=== PATIENT | female | born 1955 | race Caucasian/White ===

== ENCOUNTER 2018-07-27 23:25 | Observation (INO) ==
--- NOTE | 2018-07-27 23:48 | Emergency Department Note ---
Disposition Clinical Impression: Anemia Qualifiers: Anemia type: unspecified type Qualified Code(s): D64.9 - Anemia, unspecified Disposition: Admitted As Inpatient Condition: Good Referrals: Amy Muniz MD [Primary Care Provider] - General Adult HPI - General Stated complaint: Abnormal Labs Time Seen by Provider: 07/27/18 23:34 Source: patient, other (NH file, [place] MD report) Mode of arrival: wheelchair Limitations: other (MRDD) Nursing Notes Reviewed: Yes Vital Signs Reviewed: Yes - History of Present Illness HPI Narrative: Patient presents to the ED from a local nursing facility with request for blood transfusion and continued management of hyponatremia. Per Dr. Muniz, patient's physician at [facility], patient is requiring a blood transfusion due to a hemoglobin of 6.9 that was drawn on the morning of 07/27. Patient has also been receiving sodium chloride tablets and a normal saline infusion to treat hyponatremia with sodiums in the 120s over the past several days. Per Dr. 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 She was originally seen in this ED on 06/25, transferred to [facility] and then sent on to [facility] due to her multiple complicated issues. She apparently had a bone marrow biopsy while at [facility] and was initiated on oral chemotherapy for her CML after receiving acute treatment for her blast crisis. She was also transfused 3 units of blood during her admission and had several surgeries for incision and drainage, debridements and wound vacs for her left lower extremity infected hematoma. She is now being followed by Dr. Chaparro in oncology at [facility] and has a standing order for blood transfusions of leuko-reduced irradiated PRBCs as needed to maintain a hemoglobin of greater than 8. Per Dr. Muniz they have been monitoring her H&H on an outpatient basis and it dropped to 6.9 this morn ing after being 7.8 on the an 8.5 on the . No hemoglobin was checked on the . She has also had a low sodium for the past several days and has been treated with sodium chloride tablets as well as a normal saline infusion. Review of records shows her sodium was 124 on the followed by 123 on the and 122 on the . A normal saline infusion was initiated around 5 PM on the and her sodium had improved to 126 on this morning's labs. According to nursing report just prior to transfer to the ED patient has had a total of 2.25 L of normal saline that has been running at 75 mL an hour since approximately [address] Muniz decided to send her to the ED this evening for transfusion, continuation of normal saline infusions and monitoring of her hyponatremia. Patient received one of her when necessary 5 mg oxycodone to 11 PM and her normal saline infusion was stopped at that time just prior to transport to the ED. On arrival to the ED patient is complaining only of chronic pain in her left leg. She denies any chest pain or shortness of breath. No abdominal pain, nausea or vomiting. No fever or chills. She is sitting comfortably in a wheelchair and is awake and alert. - Related Data Home Medications Medication Instructions Recorded Confirmed Lisinopril [Zestril] 20 mg PO DAILY 06/24/18 07/28/18 Omeprazole [PriLOSEC] 20 mg PO BID 06/24/18 07/28/18 Perphenazine 4 mg PO DAILY 06/24/18 07/28/18 Simvastatin [Zocor] 40 mg PO HS 06/24/18 07/28/18 Docusate [Colace] 100 mg PO PRN PRN 06/25/18 07/28/18 Imatinib Mesylate [Gleevec] 400 mg PO DAILY 07/28/18 07/28/18 Oxycodone HCl [Roxybond] 5 mg PO Q8H PRN 07/28/18 07/28/18 Allergies Allergy/AdvReac Type Severity Reaction Status Date / Time allopurinol Allergy Rash Verified 07/28/18 00:21 sulfamethoxazole AdvReac See Verified 07/28/18 00:21 [From Bactrim] Comments trimethoprim [From Bactrim] AdvReac See Verified 07/28/18 00:21 Comments Constitutional: Denies: fever, chills, weakness, weight change Eyes: Denies: eye pain, eye discharge, vision change ENT ED: Denies: ear pain, throat pain, dental pain, hearing loss, epistaxis, congestion, dysphagia Cardiovascular: Denies: chest pain, palpitations, dyspnea on exertion, edema, syncope Respiratory: Denies: cough, dyspnea, wheezes, hemoptysis, stridor Gastrointestinal: Denies: abdominal pain, nausea, vomiting, diarrhea, constipation, hematemesis, melena, hematochezia Genitourinary: Denies: dysuria, frequency, hematuria, discharge Musculoskeletal: Reports: as per HPI, myalgia (left leg). Denies: back pain, neck pain, arthralgia Integumentary: Denies: rash, abrasion, lesions Neurological: Denies: headache, weakness, numbness, paresthesias, confusion, abnormal gait, vertigo Psychiatric: Denies: anxiety, depression, suicidal thoughts, homicidal thoughts, auditory hallucinations, visual hallucinations Endocrine: Denies: fatigue Hematological/Lymphatic: Denies: easy bleeding, easy bruising Allergic/Immunologic: Denies: facial swelling, urticaria Past Medical History - Past Medical History Medical history: Reports: GERD, hyperlipidemia, hypertension, other Psychiatric history: Reports: anxiety HYDROELECTRIC MECHANIC history: Reports: no HYDROELECTRIC MECHANIC history - Social History Smoking Status: Never smoker Smokeless Tobacco Status: No Alcohol use: Reports: none Drug use: Reports: none Physical Exam - General Limitations: physical limitation General appearance: alert, in no apparent distress - Head Head exam: atraumatic, normocephalic, normal inspection - Eye Eye exam: Present: normal appearance, PERRL, EOMI - ENT ENT exam: normal exam, normal oropharynx, mucous membranes moist - Neck Neck exam: Present: normal inspection, full ROM, trachea midline - Chest Chest inspection: Present: normal inspection, symmetric chest wall rise - Respiratory Respiratory exam: Present: normal lung sounds bilaterally - Cardiovascular Cardiovascular exam: Present: regular rate, normal rhythm, normal heart sounds - Abdominal Exam Abdominal exam: Present: soft, Non-Tender. Absent: tenderness, distention, guarding, rebound, rigidity - Extremities Exam Extremities exam: Present: normal inspection, normal capillary refill, other (CHINEDU wrap and knee immobilizer on LLE). Absent: tenderness, pedal edema - Back Exam Back exam: Present: normal inspection, full ROM. Absent: tenderness - Neurological Exam Neurological exam: Present: alert, oriented X3 - Psychiatric Psychiatric exam: Present: normal affect, normal mood - Skin Skin exam: Present: warm, dry, intact, pallor Course Course Narrative: Patient presents to the ED with request for blood transfusion and continued normal saline infusion for hyponatremia per her retirement physician. On arrival patient is afebrile, hemodynamically stable and nontoxic in appearance. She has no acute complaints or symptoms related to her current anemia. Will recheck CBC and BMP. Per lab patient had a type and cross and hold performed 2 days ago in anticipation of transfusion which can still be utilized for her transfusion today. Blood will be ordered from [facility]. Will contact the hospit alist and make arrangements for admission and monitoring of her transfusion upon completion of initial lab work. - Reevaluation(s) Reevaluation #1: I was just informed by nursing staff that the ID band associated with the patient's prior type and hold order for PRBCs from 2 days ago was disposed of by the retirement. For this reason she will now have to be typed and crossed all over again with a new blood order placed to [facility]. This will cause significant delay in initiation of her transfusion. Time: 00:09 Reevaluation #2: Patient's hemoglobin is 7.8 and hematocrit is 23.7. It remains unclear why there is such a discrepancy compared to her most recent labs given that she has been receiving IV fluids all day and would therefore be expected to be more dilutional but this is still below the threshold as desired by her oncologist and we will therefore go ahead and transfuse 1 unit. Will plan to have hemoglobin rechecked before continuing with a second unit as originally planned. Still awaiting BMP at this time due to QC tests being ran on lab equipment. Time: 01:41 Reevaluation #3: Seated verbal report from lab that patient's current sodium is 131 which is an improvement from 126 yesterday morning and potassium is 5.0 compared to 5.2 yesterday. Will contact the hospitalist on-call at this time to make arran gements for admission for monitoring of her transfusion and repeat lab work. Additional Reevaluation(s): 02:38 - spoke to the hospitalist on-call, Dr. Carrillo, who has accepted the patient. Transfusion has just been initiated. Will arrange for repeat labs be drawn at 8 AM. Vital Signs Temperature 98.8 F 07/27/18 23:35 Pulse Rate 97 07/27/18 23:35 Respiratory Rate 18 07/27/18 23:35 Blood Pressure 123/77 07/27/18 23:35 O2 Sat by Pulse Oximetry 100 07/27/18 23:35 Temperature 98.4 F 07/28/18 02:24 Pulse Rate 82 07/28/18 02:24 Respiratory Rate 18 07/28/18 02:24 Blood Pressure 115/68 07/28/18 02:24 O2 Sat by Pulse Oximetry 100 07/27/18 23:35 Oxygen Delivery Oxygen Delivery Room Air Medical Decision Making - Medical Records Medical records reviewed: Yes I reviewed the patient's medical records. - Lab Data Lab results reviewed: Yes I reviewed the patient's lab results. Result diagrams: 07/28/18 00:45 Lab Results 07/28/18 07/28/18 Range/Units 00:45 00:45 WBC 4.2 L (4.3-11.1) K/mcL RBC 2.74 L (3.82-4.97) M/mcL Hgb 7.8 L (11.5-15.4) g/dL Hct 23.7 L (35.3-44.9) % MCV 86.5 (83.0-100.0) fL MCH 28.5 (28.0-33.3) pg MCHC 32.9 (31.6-35.5) g/dL RDW 20.4 H (11.5-14.5) % Plt Count 104 L (140-400) K/mcL MPV 9.2 L (9.4-12.4) fL Immature Gran % 0.7 (0-4) % Seg Neutrophils % 31.9 % Lymphocytes % 56.0 % Monocytes % 6.9 % Eosinophils % 1.9 % Basophils % 2.6 % Neutrophils # 1.3 L (1.6-8.9) K/mcL Lymphocytes # 2.4 (0.6-4.6) K/mcL Monocytes # 0.3 (0.0-1.3) K/mcL Eosinophils # 0.1 (0.0-0.6) K/mcL Basophils # 0.1 (0.0-0.2) K/mcL Blood Type O POSITIVE Antibody Screen NEGATIVE Crossmatch See Detail
[2018-07-28 00:46] LABS: Basophils # 0.1 K/mcL (0.0-0.2); Basophils % 2.6 %; Eosinophils # 0.1 K/mcL (0.0-0.6); Eosinophils % 1.9 %; Hematocrit 23.7 % (35.3-44.9); Hemoglobin 7.8 g/dL (11.5-15.4); Immature Granulocytes % 0.7 % (0-4); Mean Corpuscular HGB Conc 32.9 g/dL (31.6-35.5); Mean Corpuscular Hemoglobin 28.5 pg (28.0-33.3); Mean Corpuscular Volume 86.5 fL (83.0-100.0); Mean Platelet Volume 9.2 fL (9.4-12.4); Monocytes # 0.3 K/mcL (0.0-1.3); Monocytes % 6.9 %; Neutrophils # 1.3 K/mcL (1.6-8.9); Platelet Count 104 K/mcL (140-400); Red Blood Count 2.74 M/mcL (3.82-4.97); Red Cell Distribution Width 20.4 % (11.5-14.5); Segmented Neutrophils % 31.9 %
[2018-07-28 00:52] LABS: Lymphocytes # 2.4 K/mcL (0.6-4.6)
[2018-07-28] MEDS ORDERED: 0.9 % Sodium Chloride 500 ML ONE ×2 (02:15→03:18)
[2018-07-28] MEDS ORDERED: Naloxone 0.4 MG/ML INJ IVP PRN ×2 (02:30→03:18)
[2018-07-28 03:29] LABS: Chloride 98 mEq/L (98-107); Sodium 131 mEq/L (136-145)
[2018-07-28 03:30] LABS: BUN/Creatinine Ratio 13 (6-26); Blood Urea Nitrogen 10 mg/dL (8-23); Calcium 8.6 mg/dL (8.6-10.3); Carbon Dioxide 24 mEq/L (23-29); Glucose 110 mg/dL (70-105); Osmolality,Calculated 272 (280-300); eGFR For Non-African Americans > 60 (> 60)
[2018-07-28 08:43] LABS: Basophils # 0.1 K/mcL (0.0-0.2); Eosinophils # 0.1 K/mcL (0.0-0.6); Eosinophils % 1.8 %; Hematocrit 26.4 % (35.3-44.9); Hemoglobin 8.8 g/dL (11.5-15.4); Immature Granulocytes % 0.7 % (0-4); Lymphocytes % 43.5 %; Mean Corpuscular HGB Conc 33.3 g/dL (31.6-35.5); Mean Corpuscular Hemoglobin 28.9 pg (28.0-33.3); Mean Corpuscular Volume 86.8 fL (83.0-100.0); Mean Platelet Volume 8.3 fL (9.4-12.4); Monocytes # 0.3 K/mcL (0.0-1.3); Monocytes % 6.6 %; Neutrophils # 2.1 K/mcL (1.6-8.9); Red Blood Count 3.04 M/mcL (3.82-4.97); Red Cell Distribution Width 19.2 % (11.5-14.5); Segmented Neutrophils % 45.4 %
[2018-07-28 08:48] LABS: Platelet Count 73 K/mcL (140-400)
[2018-07-28 09:03] LABS: BUN/Creatinine Ratio 12 (6-26); Blood Urea Nitrogen 9 mg/dL (8-23); Calcium 8.4 mg/dL (8.6-10.3); Carbon Dioxide 22 mEq/L (23-29); Chloride 101 mEq/L (98-107); Glucose 105 mg/dL (70-105); Osmolality,Calculated 267 (280-300); Potassium 4.9 mEq/L (3.5-5.1); Sodium 129 mEq/L (136-145); eGFR For Non-African Americans > 60 (> 60)
[2018-07-28] MEDS: Lisinopril 20 MG TABLET PO SCH (10:54)
[2018-07-28] MEDS: (Imatinib Mesylate [Gleevec] 400 MG) PO SCH ×2 (10:55→19:11)
[2018-07-28] MEDS: Perphenazine 2 MG TABLET PO SCH (10:55)
[2018-07-28] MEDS: *HR* OxyCODONE Immed Rel 5 MG TABLET PO PRN ×2 (11:01→23:53)
--- NOTE | 2018-07-28 11:48 | Internal Med History&Physical ---
Date of Encounter: 07/28/18 Time of Encounter: 11:20 Internal Medicine - H&P: HPI Chief complaint: symptomatic anemia Admitted From: Long-term Nursing Facility History of present illness: Ms. Mei is a 63 year old female who was sent from her nursing facility to ED for symptomatic anemia. Pt was weak and pale HB had been checked that day which was reported to be under 7. Pt did not have active bleeding, but had recent issues regarding her blood. She has also recurring symptomatic hyponatremia. She did have recent diagnosis of CML. She was treated at [facility] from 06/25 and then sent to [facility]. She apparently had a bone marrow biopsy while at [facility] and was initiated on oral chemotherapy for her CML after receiving acute treatment for her blast crisis. She was also transfused 3 units of blood during her admission and had several surgeries for incision and drainage, debridements and wound vacs for her left lower extremity infected hematoma. She is now being followed by Dr. Chaparro in oncology at [facility] and has a standing order for blood transfusions of leuko-reduced irradiated PRBCs as needed to maintain a hemoglobin of greater than 8. She takes salt tablets for chronic hyponatremia. She has chronic leg pain and reduced mobility and hx of falls. She had complication of previous fall with recent left LL incision and drainage, debridements and wound vacs for her left lower extremity infected hematoma. - Related Data Home Medications Medication Instructions Recorded Confirmed Lisinopril [Zestril] 20 mg PO DAILY 06/24/18 07/28/18 Omeprazole [PriLOSEC] 20 mg PO BID 06/24/18 07/28/18 Perphenazine 4 mg PO DAILY 06/24/18 07/28/18 Simvastatin [Zocor] 40 mg PO HS 06/24/18 07/28/18 Docusate [Colace] 100 mg PO PRN PRN 06/25/18 07/28/18 Imatinib Mesylate [Gleevec] 400 mg PO DAILY 07/28/18 07/28/18 Oxycodone HCl [Roxybond] 5 mg PO Q8H PRN 07/28/18 07/28/18 Allergies Allergy/AdvReac Type Severity Reaction Status Date / Time allopurinol Allergy Rash Verified 07/28/18 00:21 sulfamethoxazole AdvReac See Verified 07/28/18 00:21 [From Bactrim] Comments trimethoprim [From Bactrim] AdvReac See Verified 07/28/18 00:21 Comments Constitutional: Denies: fever, chills does complain of general weakness and anxiety Eyes: Denies: eye pain, eye discharge, vision change ENT ED: Denies: ear pain, throat pain, dental pain, hearing loss, epistaxis, congestion, dysphagia Cardiovascular: Denies: chest pain, palpitations, dyspnea on exertion, edema, syncope Respiratory: Denies: cough does feel sob with exertion Gastrointestinal: Denies: abdominal pain, nausea, vomiting Genitourinary: Denies: dysuria, hematuria, discharge Musculoskeletal: Reports: as per HPI, myalgia (left leg) Integumentary: Denies: rash did have hematoma after fall Neurological: Denies: headache, weakness, numbness, paresthesias, confusion, abnormal gait, vertigo Psychiatric: reports anxiety, worried about her cat Jens she says her sister is caring for the cat. denies suicidal thoughts Past Medical History - Past Medical History Medical history: Reports: GERD, hyperlipidemia, hypertension, other Psychiatric history: Reports: anxiety TRANSPORTATION MAINTENANCE SPECIALIST history: Reports: no TRANSPORTATION MAINTENANCE SPECIALIST history - Social History Smoking Status: Never smoker Smokeless Tobacco Status: No Alcohol use: Reports: none Drug use: Reports: none Physical Exam - General Limitations: physical limitation General appearance: obese WF pale alert, in no apparent distress cushenoid body habbitus - Head Head exam: atraumatic, normocephalic - Eye Eye exam: Present: normal appearance, PERRL, EOMI - ENT ENT exam: normal exam, normal oropharynx - Neck Neck exam: Present:thick neck , full ROM, trachea midline - Respiratory Respiratory exam: Present: normal lung sounds bilaterally - Cardiovascular Cardiovascular exam: Present: regular rate, normal rhythm, normal heart sounds - Abdominal Exam Abdominal exam: Present: obese abd soft, Non-Tender. Absent: tenderness, distention, guarding, rebound, rigidity - Extremities Exam Extremities exam: Present: previous fall with LLE injury (CHINEDU wrap and knee immobilizer on LLE). pulses palp - Back Exam - Neurological Exam Neurological exam: Present: alert, oriented X3 no gross def - Psychiatric Psychiatric exam: Present: normal affect, anxious - Skin Skin exam: Present: warm, dry, intact, pallor Assessments and plans admit for medical observation (1) symptomatic anemia with recent dx of CML and chemo at [facility], directive to transfuse under 8 wtih irradiated leukopoor blood - 1 unit blood recheck labs monitor (2) symptomatic hyponatremia acute on chronic NS IV restart po sodium tabs repeat electrolytes and monitor Past Med Surg Social Fam HX - Past Medical History Medical history: GERD, hyperlipidemia, hypertension, other Additional medical history: MRDD, CML,INFECTED HEMATOMA LT LOWER LEG, ACUTE KIDNEY DISEASE Psychiatric history: anxiety, other - Social History Smoking Status: Never smoker Smokeless Tobacco Status: No Alcohol use: none Drug use: none Internal Medicine - H&P: Meds Lisinopril [Zestril] 20 mg PO DAILY 06/24/18 [History] Omeprazole [PriLOSEC] 20 mg PO BID 06/24/18 [History] Perphenazine 4 mg PO DAILY 06/24/18 [History] Simvastatin [Zocor] 40 mg PO HS 06/24/18 [History] Docusate [Colace] 100 mg PO PRN PRN 06/25/18 [History] Imatinib Mesylate [Gleevec] 400 mg PO DAILY 07/28/18 [History] Oxycodone HCl [Roxybond] 5 mg PO Q8H PRN 07/28/18 [History] Allergy/AdvReac Type Severity Reaction Status Date / Time allopurinol Allergy Rash Verified 07/28/18 00:21 sulfamethoxazole AdvReac See Verified 07/28/18 00:21 [From Bactrim] Comments trimethoprim [From Bactrim] AdvReac See Verified 07/28/18 00:21 Comments All Systems PM: A 10-system review of systems was performed and is negative for pertinent findings except as documented above in the HPI. - Constitutional Vitals: Temp Pulse Resp BP Pulse Ox 97.8 F 91 16 115/71 99 07/28/18 09:10 07/28/18 09:10 07/28/18 09:10 07/28/18 09:10 07/28/18 09:10 Internal Med - H&P Results - Labs CBC & Chem 7: 07/28/18 08:35 07/28/18 08:35 Labs: Short CBC 07/28/18 07/28/18 Range/Units 00:45 08:35 WBC 4.2 L 4.6 (4.3-11.1) K/mcL Hgb 7.8 L 8.8 L (11.5-15.4) g/dL Hct 23.7 L 26.4 L (35.3-44.9) % Plt Count 104 L 73 L (140-400) K/mcL Neutrophils # 1.3 L 2.1 (1.6-8.9) K/mcL BMP 07/28/18 07/28/18 00:45 08:35 Sodium 131 L 129 L Potassium 5.0 4.9 Chloride 98 101 Carbon Dioxide 24 22 L BUN 10 9 Creatinine 0.77 0.77 Glucose 110 H 105 Calcium 8.6 8.4 L - VTE Reasons for not Prescribing Prophylaxis: Treatment not Indicated - Low risk for VTE
[2018-07-29 05:56] LABS: Hematocrit 25.7 % (35.3-44.9); Hemoglobin 8.6 g/dL (11.5-15.4); Mean Corpuscular HGB Conc 33.5 g/dL (31.6-35.5); Mean Corpuscular Volume 86.5 fL (83.0-100.0); Mean Platelet Volume 9.4 fL (9.4-12.4); Red Blood Count 2.97 M/mcL (3.82-4.97); Red Cell Distribution Width 19.4 % (11.5-14.5)
[2018-07-29 06:14] LABS: BUN/Creatinine Ratio 9 (6-26); Blood Urea Nitrogen 6 mg/dL (8-23); Calcium 8.4 mg/dL (8.6-10.3); Carbon Dioxide 22 mEq/L (23-29); Chloride 96 mEq/L (98-107); Glucose 97 mg/dL (70-105); Osmolality,Calculated 262 (280-300); Potassium 3.8 mEq/L (3.5-5.1); Sodium 127 mEq/L (136-145); eGFR For Non-African Americans > 60 (> 60)
[2018-07-29 06:27] LABS: Platelet Count 65 K/mcL (140-400)
[2018-07-29] MEDS: Lisinopril 20 MG TABLET PO SCH (08:23)
[2018-07-29] MEDS: (Imatinib Mesylate [Gleevec] 400 MG) PO SCH (08:23)
[2018-07-29] MEDS: Perphenazine 2 MG TABLET PO SCH (08:24)
[2018-07-29] MEDS: *HR* OxyCODONE Immed Rel 5 MG TABLET PO PRN (08:24)
--- NOTE | 2018-07-29 10:13 | Physician Discharge Referral ---
ExtendedCare Referral Info Transfer To: [facility] Provider in Charge after Transfer: PCP Institutional Level of Care: Intermediate - Diagnosis (1) CML (chronic myelocytic leukemia) Priority: Secondary Status: Chronic (2) Anemia Priority: Primary Status: Acute (3) Hyponatremia Priority: Secondary Status: Acute Prognosis: Fair Aware of Diagnosis: Patient - Transfer Medications Home Medications: Lisinopril [Zestril] 20 mg PO DAILY 06/24/18 [History] Omeprazole [PriLOSEC] 20 mg PO BID 06/24/18 [History] Perphenazine 4 mg PO DAILY 06/24/18 [History] Simvastatin [Zocor] 40 mg PO HS 06/24/18 [History] Docusate [Colace] 100 mg PO PRN PRN 06/25/18 [History] Imatinib Mesylate [Gleevec] 400 mg PO DAILY 07/28/18 [History] Oxycodone HCl [Roxybond] 5 mg PO Q8H PRN 07/28/18 [History] Allergies/Adverse Reactions: Allergy/AdvReac Type Severity Reaction Status Date / Time allopurinol Allergy Rash Verified 07/28/18 00:21 sulfamethoxazole AdvReac See Verified 07/28/18 00:21 [From Bactrim] Comments trimethoprim [From Bactrim] AdvReac See Verified 07/28/18 00:21 Comments - Respiratory Orders Smoking Cessation: Smoking cessation has been advised. For more information, call the [place] Tobacco Quit Line at 1-356-PAMR-NOW. - Advance Directives Code Status: DNR-Arrest - Diet Orders Regular CERTIFICATION: I certify that the transfer of the above named patient to an Extended Care Facility is necessary for the continuing treatment of the diagnosis listed. The above information is true and accurate reflection of patient's current condition. Confidential - Redisclosure prohibited without a patient's written consent.
--- NOTE | 2018-07-29 10:16 | Discharge Summary ---
Orders not resulted at time of discharge: Pending orders 07/27/18 23:40 Red Blood Cells [BBK] Stat Type and Screen [BBK] Stat Date of Encounter: 07/29/18 Time of Encounter: 10:13 - Discharge Diagnosis (1) CML (chronic myelocytic leukemia) Priority: Secondary Status: Chronic Comments: Follow-up with oncology as scheduled. Continue supportive care. (2) Anemia Priority: Primary Status: Acute Comments: Monitor hemoglobin. Currently 8.6. Monitor symptoms for anemia. Qualifiers: Anemia type: unspecified type Qualified Code(s): D64.9 - Anemia, unspecified (3) Hyponatremia Priority: Secondary Status: Acute Comments: Sodium currently 127. Continue salt tabs. Hospital course: Ms. Mei is a 63 year old female admitted to unit for symptomatic anemia. Hemoglobin was less than 7.0. Also has hyponatremia. Takes all pack tabs. Lives at [facility]. Was recently diagnosed with CML. Dr. Cooley is following. Hemoglobin today's 8.6. Patient denies any complaints at this time. Discharge discussed with: patient, nurse, social work - Time Spent with Patient Total time spent providing and/or coordinating discharge services: Time spent: Less than 30 minutes - Discharge Medications Prescriptions: No Action Docusate [Colace] 100 mg PO PRN PRN PRN Reason: Constipation Simvastatin [Zocor] 40 mg PO HS Perphenazine 4 mg PO DAILY Omeprazole [PriLOSEC] 20 mg PO BID Lisinopril [Zestril] 20 mg PO DAILY Imatinib Mesylate [Gleevec] 400 mg PO DAILY Oxycodone HCl [Roxybond] 5 mg PO Q8H PRN PRN Reason: Pain Home Medications: Lisinopril [Zestril] 20 mg PO DAILY 06/24/18 [History] Omeprazole [PriLOSEC] 20 mg PO BID 06/24/18 [History] Perphenazine 4 mg PO DAILY 06/24/18 [History] Simvastatin [Zocor] 40 mg PO HS 06/24/18 [History] Docusate [Colace] 100 mg PO PRN PRN 06/25/18 [History] Imatinib Mesylate [Gleevec] 400 mg PO DAILY 07/28/18 [History] Oxycodone HCl [Roxybond] 5 mg PO Q8H PRN 07/28/18 [History] Sodium Chloride [Sodium Chloride Tab] 2 gm PO BID tablet 07/29/18 [Rx] Allergies/Adverse Reactions: Allergy/AdvReac Type Severity Reaction Status Date / Time allopurinol Allergy Rash Verified 07/28/18 00:21 sulfamethoxazole AdvReac See Verified 07/28/18 00:21 [From Bactrim] Comments trimethoprim [From Bactrim] AdvReac See Verified 07/28/18 00:21 Comments Date of admission: 07/28/18 02:58 Primary care physician: Amy Muniz Discharging clinician: Eli Carrillo Anticipated date of discharge: 07/29/18 - Constitutional Vitals: Temp Pulse Resp BP Pulse Ox 98.2 F 86 16 133/69 98 07/29/18 07:49 07/29/18 07:49 07/29/18 07:49 07/29/18 07:49 07/29/18 07:49 General appearance: Present: A&O X 2, pleasant, no acute distress, answers questions appropriately - Head Head exam: Present: atraumatic, normocephalic - Eye Eye exam: Present: PERRL, conjuntiva pink, sclera anicteric Pupils: Present: PERRL - Neck Neck exam general surgery: Present: supple, trachea midline. Absent: lymphadenopathy - Respiratory Respiratory exam: Present: CTAB. Absent: accessory muscle use, rales, rhonchi, wheezes - Cardiovascular Cardiovascular exam: Present: RRR, +S1, +S2. Absent: diastolic murmur, gallop, rubs, systolic murmur - GI/Abdominal GI/Abdominal exam: Present: normal bowel sounds, soft, no peritoneal signs. Ab sent: distended, tenderness - Extremities Exam Extremities exam: Present: warm, radial pulses palpable and symmetrical. Absent: calf tenderness, cyanotic, pedal edema - Neurological Exam Neurological exam: Present: CN II-XII intact, oriented X3, no focal deficits. Absent: pronater drift, facial droop, speech deficit - Skin Skin exam: Present: dry, intact - Patient Status Disposition: Transfer LTC Condition: Good Functional capacity at discharge: uses cane/walker Overall status at discharge: patient is progressing back to baseline - Discharge Instructions Forms: ED Satisfaction Letter - Diet and Activity Activity: increase activity as tolerated Diet: advance to your usual diet, regular diet - VTE Reasons for not Prescribing Prophylaxis: Treatment not Indicated - Low risk for VTE
[2018-07-29 13:49] VITALS: BP 135/82
== END 2018-07-29 14:30 ==
LOC: INPGRE 23:25 → EMEROOGRE 23:25 → INPGRE 07-28 03:13
PROVIDERS: ADMIT Internal Medicine; ATTEND Internal Medicine